=== PATIENT | female | born 1980 | race Caucasian/White ===

== ENCOUNTER 2023-11-23 15:11 | Emergency (ER) | payer MEDICAID, OTHER ==
[2023-11-23 16:05] LABS: BASOPHILS ABSOLUTE AUTO 0.1 K/mm3 (0.0-0.2); BASOPHILS PERCENT AUTO 0.5 % (0.0-1.0); EOSINOPHILS ABSOLUTE AUTO 0.3 K/mm3 (0.0-0.4); EOSINOPHILS PERCENT AUTO 2.7 % (0.0-6.0); HEMATOCRIT 41.1 % (37.0-47.0); HEMOGLOBIN 13.5 gm/dl (12.0-16.0); IMMATURE GRAN ABSOLUTE AUTO 0.01 K/mm3 (0.00-0.05); IMMATURE GRAN PERCENT AUTO 0.1 % (0.0-0.4); LYMPHOCYTES ABSOLUTE AUTO 4.2 K/mm3 (1.0-4.8); LYMPHOCYTES PERCENT AUTO 45.3 % (24.0-44.0); MEAN CORPUSCULAR HEMOGLOBIN 28.7 pg (28.0-32.0); MEAN CORPUSCULAR HGB CONC 32.8 g/dl (32.0-36.0); MEAN CORPUSCULAR VOLUME 87.3 fl (83.0-99.0); MEAN PLATELET VOLUME 10.5 fl (9.4-12.3); MONOCYTES ABSOLUTE AUTO 0.6 K/mm3 (0.0-0.8); MONOCYTES PERCENT AUTO 6.4 % (0.0-8.0); NEUTROPHILS ABSOLUTE AUTO 4.1 K/mm3 (1.8-7.7); PLATELET COUNT,PLT 215 K/mm3 (150-400); RED BLOOD CELL COUNT 4.71 M/mm3 (4.10-5.30); WHITE BLOOD CELL COUNT,WBC 9.19 K/mm3 (3.9-11.3)
[2023-11-23] MEDS ORDERED: LORazepam 2 MG/ML SDV ONE (16:17)
[2023-11-23] MEDS: Sodium Chloride 0.9% 10 ML Syringe FLUSH PRN (16:19)
[2023-11-23] MEDS: LORazepam 2 MG/ML SDV IVPUSH ONE (16:19)
[2023-11-23 16:23] LABS: ALANINE AMINOTRANSFERASE,ALT 35 U/L (14-59); ALBUMIN 3.9 g/dl (3.4-5.0); ALKALINE PHOSPHATASE 68 U/L (46-116); ANION GAP 15.5 (5-15); ASPARTATE AMNIOTRANSFERASE,AST 16 U/L (15-37); BILIRUBIN TOTAL 0.5 mg/dL (0.2-1.0); BLOOD UREA NITROGEN,BUN 15 mg/dL (7-18); BUN/CREATININE RATIO 13.6 (14-18); C-REACTIVE PROTEIN 1.27 mg/dL (<0.30); CALCIUM 9.1 mg/dL (8.5-10.1); CARBON DIOXIDE,CO2 23 mEq/L (21-32); CHLORIDE,CL 100 mEq/L (98-107); CREATININE 1.1 mg/dL (0.55-1.02); EST CRCL DRUG DOSING (CG) 65.45 mL/min; ESTIMATED GFR 65 mL/min (>60); GLUCOSE RANDOM 104 mg/dL (70-99); MAGNESIUM 1.9 mg/dL (1.8-2.4); POTASSIUM,K 3.5 mEq/L (3.5-5.1); SODIUM,NA 135 mEq/L (136-145)
[2023-11-23 16:26] LABS: TROPONIN I HIGH SENSITIVITY < 4 pg/mL (<=51)
[2023-11-23 17:18] LABS: APPEARANCE,URINE CLEAR (Clear); BILIRUBIN,URINE NEGATIVE (Negative); COLOR,URINE YELLOW (Yellow); GLUCOSE,URINE NEGATIVE (Negative); KETONES,URINE 2+ (Negative); LEUKOCYTE ESTERASE,URINE NEGATIVE (Negative); NITRITE,URINE NEGATIVE (Negative); OCCULT BLOOD,URINE NEGATIVE (Negative); PH,URINE 8.5 (5.0-8.0); PROTEIN,URINE TRACE (Negative); UROBILINOGEN,URINE 0.2 (0.2-1.0)
[2023-11-23 17:45] LABS: BACTERIA,URINE FEW /hpf (FEW); MUCUS,URINE FEW /hpf (FEW); RBC,URINE 0-5 /hpf (0-5); WBC,URINE 0-5 /hpf (0-5)
== END 2023-11-23 17:45 | disposition home or self-care (01) ==
LOC: JD.ED 15:11
DX: R07.89 Other chest pain (principal); B34.9 Viral infection, unspecified; I10 Essential (primary) hypertension; Z86.16 Personal history of COVID-19; Z91.018 Allergy to other foods; Z91.040 Latex allergy status
CPT/HCPCS: 36415; 80053; 81001; 83735; 84484; 85025; 86140; 93005; 96374; 99285; J2060; J3490